=== PATIENT | female | born 1995 | race African-American/Black ===

== ENCOUNTER 2017-11-10 00:11 | Emergency (ER) | payer SELFPAY ==
[~2017-11-10] VITALS: Ht 177.8 cm; Wt 125.0 kg
[~2017-11-10 00:11] MED LIST: ALBU6.7H INH; MEDR4PAK3 PO
[2017-11-10 00:25] VITALS: BP 155/86; PULSE 85; RESP 22; TEMP 99; O2SAT 98
[2017-11-10 01:30] VITALS: RESP 22; O2SAT 100
[2017-11-10] MEDS ORDERED: PRED20 PO (01:43)
[2017-11-10] MEDS ORDERED: ALBUAER3 INH (01:43)
[2017-11-10] MEDS ORDERED: predniSONE 20 MG TAB PO ONE (01:45)
--- NOTE | 2017-11-10 01:47 | PD ---
HPI Chief Complaint: Respiratory Symptoms Time Seen by Provider: 01:39 Travel History International Travel<30 days: No Contact w/Intl Traveler<30days: No Traveled to known affect area: No History of Present Illness HPI 22-year-old female with history of asthma presents for evaluation of asthma exacerbation. She reports that today she has been having wheezing and dry cough. Symptoms are moderate, no aggravating or relieving factors. Denies fevers or chills, recent travel, leg swelling, abdominal pain, nausea or vomiting. She is currently without any medication to treat her asthma. She has no other complaints at this time. PFSH Past Medical History Asthma: Yes Diminished Hearing: No Tetanus Vaccination: < 5 Years Influenza Vaccination: No ?: Not LMP: 09/13/2017 Past Surgical History Surgical History: No Previous Surgery Social History Alcohol Use: Yes (weekends) Tobacco Use: No Substance Use: No Allergies-Medications (Allergen,Severity, Reaction): Coded Allergies: No Known Allergies (Unverified Adverse Reaction, Unknown, 11/10/17) Reported Meds & Prescriptions Reported Meds & Active Scripts Active Proair Hfa 8.5 GM Inh (Albuterol Sulfate) 90 Mcg/Act Aer 2 Puff INH Q4-6H PRN 108 mcg/actuation Prednisone 20 Mg Tab 20 Mg PO BID 5 Days Proventil Hfa (Albuterol Sulfate) 6.7 Gm Aero 2 Puff INH Q4H PRN * SHAKE WELL BEFORE USE * Medrol Dosepak (Methylprednisolone) 4 Mg Raoul 4 Mg PO DIRECTED TAKE DIRECTED Review of Systems Except as stated in HPI: all other systems reviewed are Neg Physical Exam Narrative GENERAL: Well-developed well-nourished female no acute distress SKIN: Warm and dry. HEAD: Atraumatic. Normocephalic. EYES: Pupils equal and round. No scleral icterus. No injection or drainage. ENT: No nasal bleeding or discharge. Mucous membranes pink and moist. NECK: Trachea midline. No JVD. CARDIOVASCULAR: Regular rate and rhythm. No murmur appreciated. RESPIRATORY: No accessory muscle use. Faint wheezing bilaterally. GASTROINTESTINAL: Abdomen soft, non-tender, nondistended. Hepatic and splenic margins not palpable. MUSCULOSKELETAL: No obvious deformities. No clubbing. No cyanosis. No edema. Data Data Last Documented VS Vital Signs Date Time Temp Pulse Resp B/P (MAP) Pulse Ox O2 Delivery O2 Flow Rate FiO2 11/10/17 01:30 22 100 Room Air 11/10/17 00:25 99.0 85 155/86 (109) Orders Orders Prednisone (Deltasone) (11/10/17 01:45) Albuterol-Ipratropium Neb (Duoneb Neb) (11/10/17 01:45) Ed Discharge Order (11/10/17 03:08) MDM Medical Decision Making Medical Screen Exam Complete: Yes Emergency Medical Condition: Yes Medical Record Reviewed: Yes Differential Diagnosis Asthma exacerbation, reactive airway disease, bronchitis, pneumothorax, pneumonia Narrative Course Examination is consistent with asthma exacerbation. She will be treated with bronchodilators and prednisone. Diagnosis Primary Impression: Asthma exacerbation Additional Instructions: Medication as prescribed, follow-up with primary care physician, return for any emergent medical conditions. Med/Other Pt SpecificInfo: Prescription(s) given Scripts Albuterol 8.5 GM Inh (Proair Hfa 8.5 GM Inh) 90 Mcg/Act Aer 2 PUFF INH Q4-6H Y for SHORTNESS OF BREATH, #1 INHALER 0 Refills 108 mcg/actuation Prov: Jose Colon MD 11/10/17 Prednisone (Prednisone) 20 Mg Tab 20 MG PO BID for 5 Days, #10 TAB 0 Refills Prov: Jose Colon MD 11/10/17 Disposition: 01 DISCHARGE HOME Condition: Stable Main [place] Nov 10, 2017 01:46
[2017-11-10] MEDS: RESP: ALBUTEROL 2.5 MG/IPRATROPIUM 0.5 MG NEB (SCH) INH (02:33)
[2017-11-10 03:24] VITALS: BP 133/70; TEMP 98.1
== END 2017-11-10 03:25 | disposition home or self-care (01) ==
LOC: NEPD 00:11
DX: J45.901 Unspecified asthma with (acute) exacerbation (principal)
CPT/HCPCS: 94640; 94664; 99283; J7512